=== PATIENT | male | born 1965 | race Caucasian/White ===

== ENCOUNTER 2018-10-02 19:34 | Emergency (ER) | payer BC, OTHER ==
--- NOTE | 2018-10-02 20:14 | ERPHSYRPT ---
- History of Present Illness Time Seen by Provider: 10/02/18 20:10 Source: patient, family Exam Limitations: no limitations Patient Subjective Stated Complaint: pt is alert and oriented. pt comes in with a steady gait. pt comes in with c/o "insect bites", and bilat feet swelling. pt has multiple open areas on his ankles and lower legs. pt has a blister that he popped in between his big and second toe on his right foot. pt has an unopened blister to his left foot. pt has bilat edema. pt has moderate edema to his right foot and ankle and mild swelling to left foot and ankle. Triage Nursing Assessment: see above Physician History: 53 years old male with no significant PMHx except kidney stone 2 weeks ago comes in with c/o "insect bites", and bilateral feet swelling. pt has multiple open areas on his ankles and lower legs. pt has a blister that he popped in between his big and second toe on his right foot. patient has an unopened blister to his left foot. pt has edema on both lower legs with multiple punctate lesions. pt has moderate swelling to his right foot and ankle and mild swelling to left foot and ankle. Timing/Duration: week(s) Associated Symptoms: denies symptoms Allergies/Adverse Reactions: Penicillins Allergy (Intermediate, Verified 09/18/11 15:34) Home Medications: Metoprolol Succinate 100 mg [Toprol Xl 100 MG] 100 mg PO HS 09/18/11 [History ] Olmesartan/Hydrochlorothiazide [Benicar Hct 40-12.5 mg Tablet] 1 each PO HS 01/19 [History] Aspirin EC 325 mg [Ecotrin 325 MG] 325 mg PO DAILY 09/19/11 [History] Allopurinol 300 mg [Zyloprim 300 mg] 300 mg PO DAILY 10/02/18 [History] Hx Tetanus, Diphtheria Vaccination/Date Given: No Hx Influenza Vaccination/Date Given: Yes Hx Pneumococcal Vaccination/Date Given: No Immunizations Up to Date: Yes - Review of Systems Constitutional: No Fever, No Chills Eyes: No Symptoms Ears, Nose, & Throat: No Symptoms Respiratory: No Cough, No Dyspnea Cardiac: No Chest Pain, No Edema, No Syncope Abdominal/Gastrointestinal: No Abdominal Pain, No Nausea, No Vomiting, No Diarrhea Genitourinary Symptoms: No Dysuria Musculoskeletal: No Back Pain, No Neck Pain Skin: Cellulitis, Induration, Rash, Skin Lesions Neurological: No Dizziness, No Focal Weakness, No Sensory Changes Psychological: No Symptoms Endocrine: No Symptoms All Other Systems: Reviewed and Negative - Past Medical History Pertinent Past Medical History: Yes Neurological History: No Pertinent History ENT History: No Pertinent History Cardiac History: High Cholesterol, Hypertension Respiratory History: No Pertinent History Endocrine Medical History: No Pertinent History Musculoskeletal History: Other GI Medical History: Hernia History: Other Psycho-Social History: No Pertinent History Male Reproductive Disorders: No Pertinent History Other Medical History: GOUT, Kidney stones - Past Surgical History Past Surgical History: Yes Neuro Surgical History: No Pertinent History Cardiac: No Pertinent History Respiratory: No Pertinent History Gastrointestinal: Hernia Repair Genitourinary: No Pertinent History Musculoskeletal: Other Male Surgical History: No Pertinent History Other Surgical History: left knee replacement - Social History Smoking Status: Never smoker Drug Use: none - Nursing Vital Signs Nursing Vital Signs: Initial Vital Signs Temperature 100.1 F 10/02/18 19:53 Pulse Rate 87 10/02/18 19:53 Respiratory Rate 18 10/02/18 19:53 Blood Pressure 136/80 10/02/18 19:53 O2 Sat by Pulse Oximetry 100 10/02/18 19:53 Pain Scale Pain Intensity 7 - Physical Exam General Appearance: no apparent distress, alert Eye Exam: PERRL/EOMI, eyes nml inspection Ears, Nose, Throat Exam: normal ENT inspection, TMs normal, pharynx normal, moist mucous membranes Neck Exam: normal inspection, non-tender, supple, full range of motion Respiratory Exam: normal breath sounds, lungs clear, No respiratory distress Cardiovascular Exam: regular rate/rhythm, normal heart sounds, normal peripheral pulses Gastrointestinal/Abdomen Exam: soft, normal bowel sounds, No tenderness, No mass Back Exam: normal inspection, normal range of motion, No CVA tenderness, No vertebral tenderness Extremity Exam: normal inspection, normal range of motion, pelvis stable, inflammation, pedal edema, swelling, tenderness Neurologic Exam: alert, oriented x 3, cooperative, normal mood/affect, nml cerebellar function, nml station & gait, sensation nml, No motor deficits Skin Exam: normal color, warm, dry, rash, embolic lesions Lymphatic Exam: No adenopathy SpO2: 100 - Course Nursing assessment & vital signs reviewed: Yes Ordered Tests: Active Orders 24 hr Category Date Time Status BLOOD CULTURE Stat Lab 10/02/18 20:20 Received CBC W DIFF Stat Lab 10/02/18 20:10 Completed CMP Stat Lab 10/02/18 20:10 Received Lactic Acid Stat Lab 10/02/18 20:13 Completed Medication Summary Discontinued Medications Generic Name Dose Route Start Last Admin Trade Name Vu PRN Reason Stop Dose Admin Ceftriaxone Sodium 1,000 mg 10/02/18 20:45 10/02/18 20:48 Rocephin 1000 Mg Inj IV 10/02/18 20:46 Not Given STAT ONE Ceftriaxone Sodium 1,000 mg 10/02/18 20:49 Rocephin 1000 Mg Inj IM 10/02/18 20:50 STAT ONE Lab/Rad Data: Laboratory Result Diagrams 10/02/18 20:10 Laboratory Results 10/02/18 10/02/18 Range/Units 20:13 20:10 WBC 11.9 H (4.0-10.5) K/mm3 RBC 3.62 L (4.1-5.6) M/mm3 Hgb 12.6 (12.5-18.0) gm/dl Hct 37.4 L (42-50) % MCV 103.3 H (78-100) fl MCH 34.8 H (26-32) pg MCHC 33.7 (32-36) g/dl RDW 13.0 (11.5-14.0) % Plt Count 189 (150-450) K/mm3 MPV 9.9 H (6-9.5) fl Gran % 73.6 H (36.0-66.0) % Eos # (Auto) 0.27 (0-0.5) Absolute Lymphs (auto) 1.61 (1.0-4.6) Absolute Monos (auto) 1.20 (0.0-1.3) Lymphocytes % 13.6 L (24.0-44.0) % Monocytes % 10.1 (0.0-12.0) % Eosinophils % 2.3 (0.00-5.0) % Basophils % 0.4 (0.0-0.4) % Absolute Granulocytes 8.73 H (1.4-6.9) Basophils # 0.05 (0-0.4) Lactic Acid 1.7 (0.4-2.0) - Progress Progress: unchanged Counseled pt/family regarding: lab results, diagnosis, need for follow-up - Departure Departure Disposition: Home Clinical Impression: Open wound of toe of right foot, Impetigo follicularis, Impetigo due to Staphylococcus aureus Condition: Stable Critical Care Time: No Referrals: EDILSON FOOTE [Primary Care Provider] - Instructions: Wound Care (DC), Wound Infection, Folliculitis (DC), Impetigo (DC ) Additional Instructions: Discharge/Care Plan JUJU OTRREZ was seen on 10/02/18 in the Emergency Room. The patient was counseled regarding Diagnosis,Lab results, Imaging studies, need for follow up and when to return to the Emergency Room. Prescriptions given: Discharge Note I have spoken with the patient and/or caregivers. I have explained the patient' s condition, diagnosis and treatment plan based on the information available to me at this time. I have answered the patient's and/or caregiver's questions and addressed any concerns. The patient and/or caregivers have as good understanding of the patient's diagnosis, condition and treatment plan as can be expected at this point. The vital signs have been stable. The patient's condition is stable and appropriate for discharge from the emergency department. The patient will pursue further outpatient evaluation with the primary care physician or other designated or consulting physician as outlined in the discharge instructions. The patient and/or caregivers are agreeable to this plan of care and follow-up instructions have been explained in detail. The patient and/or caregivers have received these instruction. The patient/and or caregivers are aware that any significant change in condition or worsening of symptoms should prompt an immediate return to this or the closest emergency department or call 911. Prescriptions: Levofloxacin [Levaquin] 500 mg PO DAILY #10 tablet
[2018-10-02 20:28] LABS: BASOPHIL % 0.4 % (0.0-0.4); Basophil (Absolute #) 0.05 (0-0.4); Eosinophil % 2.3 % (0.00-5.0); Eosinophil (Absolute #) 0.27 (0-0.5); Granulocyte Absolute (ANC) 8.73 (1.4-6.9); Granulocytes % 73.6 % (36.0-66.0); Hematocrit 37.4 % (42-50); Hemoglobin 12.6 gm/dl (12.5-18.0); Lymphocyte (Absolute #) 1.61 (1.0-4.6); Lymphocytes % 13.6 % (24.0-44.0); Mean Cell Volume 103.3 fl (78-100); Mean Corpuscular Hemoglobin 34.8 pg (26-32); Mean Corpuscular Hgb Concent. 33.7 g/dl (32-36); Mean Platelet Volume 9.9 fl (6-9.5); Monocytes % 10.1 % (0.0-12.0); Platelet Count 189 K/mm3 (150-450); Red Blood Count 3.62 M/mm3 (4.1-5.6); White Blood Count 11.9 K/mm3 (4.0-10.5)
[2018-10-02] MEDS ORDERED: Rocephin 1000 MG INJ IV ONE (20:45)
[2018-10-02] MEDS ORDERED: Rocephin 1000 MG INJ IM ONE (20:49)
[2018-10-02] MEDS ORDERED: XYLOCAINE 1% HCL 20 ML MDV ONE (20:50)
[2018-10-02] MEDS ORDERED: Rocephin 1000 MG INJ ONE (20:50)
[2018-10-02 20:53] LABS: ALBUMIN 4.2 g/dL (3.5-5.0); ALKALINE PHOSPHATASE 78 U/L (38-126); BLOOD UREA NITROGEN 17 mg/dL (9-20); CHLORIDE 109 mmol/L (98-107); Calcium 9.3 mg/dL (8.4-10.2); Carbon Dioxide 21 mmol/L (22-30); Creatinine 1 0.62 mg/dL (0.66-1.25); Glucose 92 mg/dL (74-106); Potassium 3.7 mmol/L (3.5-5.1); SGOT/AST 33 U/L (17-59); SGPT/ALT 24 U/L (0-50); SODIUM 139 mmol/L (137-145); Total Protein 6.9 g/dL (6.3-8.2)
[2018-10-02 21:01] VITALS: BP 146/80; PULSE 84; O2SAT 97
== END 2018-10-02 21:14 | disposition home or self-care (01) ==
LOC: ED 19:34
DX: S91.109A Unspecified open wound of unspecified toe(s) without damage to nail, initial encounter (principal); L01.02 Bockhart's impetigo; B95.62 Methicillin resistant Staphylococcus aureus infection as the cause of diseases classified elsewhere; S80.862A Insect bite (nonvenomous), left lower leg, initial encounter; S80.861A Insect bite (nonvenomous), right lower leg, initial encounter; W57.XXXA Bitten or stung by nonvenomous insect and other nonvenomous arthropods, initial encounter
CPT/HCPCS: 36415; 80053; 83605; 85025; 87040; 96372; 99284; J0696